=== PATIENT | female | born 1985 | race Caucasian/White ===

== ENCOUNTER 2016-05-06 13:26 | Outpatient (CLI) | payer BC ==
[~2016-05-06] VITALS: Ht 165.1 cm; Wt 60.0 kg
[~2016-05-06 13:26] MED LIST: CELEBREX 200MG200 MG PO; PRILOSEC 20MG20 MG PO; TRINESSA LO TA1 EACH PO; ULTRACET TABL1 UDTAB PO; [UNRECOGNIZED DRUG - OTHER] PO
[2016-05-06 14:10] VITALS: BP 127/75; PULSE 70; TEMP 98.3
[2016-05-06 15:00] VITALS: BP 127/76; PULSE 73; TEMP 98.3
[2016-05-06 15:33] VITALS: BP 110/72; PULSE 68; TEMP 98.1
[2016-05-06 16:15] VITALS: BP 119/72; PULSE 61; TEMP 97.3
== END 2016-05-06 16:39 | disposition home or self-care (01) ==
LOC: EUO 13:26
DX: M45.9 Ankylosing spondylitis of unspecified sites in spine (principal)
CPT/HCPCS: J7050

== ENCOUNTER 2016-07-01 14:53 | Outpatient (CLI) | payer BC ==
[~2016-07-01] VITALS: Ht 165.1 cm; Wt 60.0 kg
[2016-07-01 16:15] VITALS: BP 119/63; PULSE 58; TEMP 99.2
[2016-07-01 16:45] VITALS: BP 118/64; PULSE 53; TEMP 99
[2016-07-01 18:12] VITALS: BP 114/70; PULSE 66; TEMP 98
== END 2016-07-01 18:27 | disposition home or self-care (01) ==
LOC: EUO 14:53
DX: M45.9 Ankylosing spondylitis of unspecified sites in spine (principal)
CPT/HCPCS: J7050

== ENCOUNTER 2016-08-27 13:00 | Outpatient (CLI) | payer BC ==
[2016-08-27 13:50] VITALS: BP 119/74; PULSE 50; TEMP 97.7
[2016-08-27] MEDS ORDERED: REMICADE V100 MG/VIA IV (13:50)
[2016-08-27 14:15] VITALS: BP 119/74; PULSE 55; TEMP 98.3
[2016-08-27 14:45] VITALS: BP 113/60; PULSE 61; TEMP 98.3
[2016-08-27 15:15] VITALS: BP 121/54; PULSE 67
[2016-08-27 15:45] VITALS: BP 113/68; PULSE 63; TEMP 98.3
== END 2016-08-27 16:30 | disposition home or self-care (01) ==
LOC: EUO 13:00
DX: M45.8 Ankylosing spondylitis sacral and sacrococcygeal region (principal); Z79.899 Other long term (current) drug therapy
CPT/HCPCS: J7050

== ENCOUNTER → 2016-09-21 | Outpatient (REF) ==
[~2016-09-21] MED LIST changes: +REMICADE V100 MG/VIA IV
== END ==
LOC: WSOH 09:53
DX: Z02.89 Encounter for other administrative examinations (principal)

== ENCOUNTER 2016-10-22 14:29 | Outpatient (CLI) | payer BC ==
[~2016-10-22] VITALS: Ht 165.1 cm; Wt 61.0 kg
[2016-10-22 15:26] VITALS: BP 116/68; PULSE 71; TEMP 97.9
[2016-10-22 16:25] VITALS: BP 116/68; PULSE 50; TEMP 97.6
[2016-10-22 17:10] VITALS: BP 102/51; PULSE 61; TEMP 98
[2016-10-22 17:41] VITALS: BP 105/52; PULSE 54; TEMP 98.1
== END 2016-10-22 17:43 | disposition home or self-care (01) ==
LOC: EUO 14:29
DX: Z79.899 Other long term (current) drug therapy (principal)
CPT/HCPCS: J7050